=== PATIENT | male | born 2000 | race Caucasian/White ===

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

== ENCOUNTER 2018-02-16 07:44 | Emergency (ER) | payer MEDICAID ==
[~2018-02-16] VITALS: Ht 165.1 cm; Wt 69.5 kg
[2018-02-16 08:10] VITALS: BP 135/82
[2018-02-16] MEDS ORDERED: IBUPROFEN 600 MG TAB PO ONE (08:30)
== END 2018-02-16 08:52 | disposition home or self-care (01) ==
LOC: ER 07:44
DX: S43.014A Anterior dislocation of right humerus, initial encounter (principal); Z88.0 Allergy status to penicillin; Z79.899 Other long term (current) drug therapy; X58.XXXA Exposure to other specified factors, initial encounter; Y93.89 Activity, other specified; Y92.89 Other specified places as the place of occurrence of the external cause; Y99.8 Other external cause status
CPT/HCPCS: 23650; 73030

== ENCOUNTER 2018-03-06 11:46 | Emergency (ER) | payer MEDICAID ==
[2018-03-06 12:30] VITALS: BP 146/81
[2018-03-06] MEDS ORDERED: HYDROcodone-ACET 5/325MG TAB PO ONE (13:00)
== END 2018-03-06 13:22 | disposition home or self-care (01) ==
LOC: ER 11:46
DX: M24.411 Recurrent dislocation, right shoulder (principal); I48.91 Unspecified atrial fibrillation; Z79.899 Other long term (current) drug therapy; Z88.0 Allergy status to penicillin
CPT/HCPCS: 23650; 73020; 73030

== ENCOUNTER 2018-05-04 08:40 | Emergency (ER) | payer MEDICAID ==
[~2018-05-04] VITALS: Ht 167.6 cm; Wt 68.0 kg
[2018-05-04 08:55] VITALS: BP 138/76
== END 2018-05-04 10:03 | disposition home or self-care (01) ==
LOC: ER 08:40
DX: S20.212A Contusion of left front wall of thorax, initial encounter (principal); Z88.0 Allergy status to penicillin; W51.XXXA Accidental striking against or bumped into by another person, initial encounter; Y93.89 Activity, other specified; Y99.8 Other external cause status; Y92.89 Other specified places as the place of occurrence of the external cause
CPT/HCPCS: 71101

== ENCOUNTER 2018-05-27 12:44 | Emergency (ER) | payer MEDICAID ==
[~2018-05-27] VITALS: Ht 167.6 cm; Wt 68.6 kg
[2018-05-27] MEDS ORDERED: ETOMIDATE (2MG/ML) 20ML VIAL IV ONE (14:15)
[2018-05-27 16:17] VITALS: BP 130/70
== END 2018-05-27 15:37 | disposition home or self-care (01) ==
LOC: ER 12:46
DX: M24.411 Recurrent dislocation, right shoulder (principal); Z88.0 Allergy status to penicillin
CPT/HCPCS: 23650; 73020; 73030; 94761; 99152; 99153

== ENCOUNTER 2018-06-28 12:42 | Inpatient (IN) | payer MEDICAID ==
[~2018-06-28] VITALS: Ht 172.7 cm; Wt 70.1 kg
[2018-06-28 13:40] LABS: Basophils # (auto) 0 uL; Eosinophils # (auto) 0 uL; Mean Corpuscular Hemoglobin 27.9 pg (28.0-32.0); Mean Corpuscular Volume 83.8 fL (80.0-100.0); Monocytes # (auto) 0.6 uL; Nucleated Red Blood Cells % 0.1 %
[2018-06-28 13:44] LABS: Basophils % (auto) 0.4 % (0.0-2.0); Eosinophils % (auto) 0.2 % (0.0-7.0); Hematocrit 50.2 % (41.0-53.0); Hemoglobin 16.7 g/dL (13.5-17.5); Lymphocytes # (auto) 1.5 uL; Lymphocytes % (auto) 18.8 % (10.0-50.0); Mean Corpuscular Hgb Conc. 33.3 g/dL (32.0-36.0); Monocytes % (auto) 8.1 % (0.0-12.0); Neutrophils # (auto) 5.6 uL; Neutrophils % (auto) 72.5 % (37.0-80.0); Platelet Count (auto) 225 10^3/uL (140-450); Red Blood Cells 5.98 10^6/uL (4.5-5.90); Red Cell Distribution Width 13.6 % (11.8-14.3); White Blood Cell 7.8 10^3/uL (4.4-10.8)
[2018-06-28 14:07] LABS: Potassium 3.9 mmol/L (3.5-5.1)
[2018-06-28 14:12] LABS: Albumin 3.7 g/dL (3.4-5.0); BUN/Creatinine Ratio 10.1; Bilirubin, Total 0.4 mg/dL (0.2-1.0); Calcium 8.7 mg/dL (8.5-10.1)
[2018-06-28 15:46] LABS: Urine Bacteria NONE SEEN /hpf (None Seen); Urine Blood Negative /uL (Negative); Urine Mucus FEW (None Seen); Urine Specific Gravity 1.025 (1.001-1.035); Urine WBC 1 /hpf (0 - 3)
[2018-06-28 16:37] LABS: Alcohol, Urine < 3.0 mg/dL (0-5); Amphetamine Screen, Urine NEGATIVE (NEGATIVE); Barbiturate Scree,Urine NEGATIVE (NEGATIVE); Benzodiazephine Screen, Urine NEGATIVE (NEGATIVE); Cannabinoid Screen, Urine NEGATIVE (NEGATIVE); Cocaine Screen, Urine NEGATIVE (NEGATIVE); Opiate Scree,Urine NEGATIVE (NEGATIVE); Phencyclidine Screen, Urine NEGATIVE (NEGATIVE)
[2018-06-28] MEDS ORDERED: FLEET ENEMA(ADULT) 135 ML PR ONE (17:30)
[2018-06-28] MEDS ORDERED: TEMAZEPAM 15 MG CAP PO PRN (18:15)
[2018-06-28] MEDS ORDERED: NITROGLYCERIN 0.4 MG SL TAB SL PRN (18:15)
[2018-06-28] MEDS ORDERED: LACTULOSE 20Gm/30ML SOLN PO PRN (18:15)
[2018-06-28] MEDS ORDERED: ACETAMINOPHEN 500 MG TAB PO PRN (18:15)
[2018-06-28] MEDS ORDERED: LORazepam 2MG/ML-1ML VIAL IV PRN (18:15)
[2018-06-28] MEDS ORDERED: MORPHINE SULFATE 4 MG/ML SYR/VIAL IV PRN (18:15)
[2018-06-28] MEDS ORDERED: cefTRIAXone 1GM/50ML D5W 50 ML IV ONE (18:15)
[2018-06-28] MEDS ORDERED: ONDANSETRON HCL 4 MG/2 ML VIAL IV PRN (18:15)
[2018-06-28] MEDS ORDERED: traMADol HCL 50 MG TAB PO PRN (18:15)
[2018-06-28] MEDS ORDERED: LORazepam 0.5 MG TAB PO PRN (18:15)
[2018-06-28] MEDS ORDERED: DEXTROSE (50%) 50ML SYRG IV PRN (18:15)
[2018-06-28] MEDS: metroNIDAZOLE 500MG/100ML 100 ML IV SCH ×2 (18:41→23:56)
[2018-06-28] MEDS: SODIUM CHLORIDE 0.9% 1,000 ML IV SCH (18:41)
[2018-06-28] MEDS ORDERED: cefTRIAXone 1GM/50ML D5W 50 ML IV SCH (18:43)
[2018-06-28 18:58] LABS: Amylase 38 U/L (25-115); Lipase 105 U/L (73-393)
[2018-06-28 20:10] VITALS: BP 116/68
[2018-06-28] MEDS: FAMOTIDINE 20 MG TAB PO SCH (21:21)
[2018-06-28] MEDS: LEVETIRACETAM 500 MG TAB PO SCH (21:21)
[2018-06-28 22:00] VITALS: BP 116/68
[2018-06-28] MEDS ORDERED: OMEP20TA PO (23:43)
[2018-06-28] MEDS ORDERED: DIVA500T53 PO (23:44)
[2018-06-28] MEDS: ACCU-CHEK COMFORT CURVE STRIP VI SCH (23:56)
[2018-06-29] MEDS: SODIUM CHLORIDE 0.9% 1,000 ML IV SCH ×2 (04:03→12:45)
[2018-06-29 04:45] VITALS: BP 103/57
[2018-06-29] MEDS: metroNIDAZOLE 500MG/100ML 100 ML IV SCH ×3 (05:58→18:07)
[2018-06-29] MEDS: ACCU-CHEK COMFORT CURVE STRIP VI SCH ×3 (05:58→18:07)
[2018-06-29 08:00] VITALS: BP 120/73
[2018-06-29 09:00] VITALS: BP 120/73
[2018-06-29] MEDS ORDERED: cefTRIAXone 1GM/50ML D5W 50 ML IV SCH (09:00)
[2018-06-29] MEDS: FAMOTIDINE 20 MG TAB PO SCH (09:04)
[2018-06-29] MEDS: LEVETIRACETAM 500 MG TAB PO SCH (09:05)
[2018-06-29] MEDS ORDERED: ESLICARBAZEPINE ACETATE 800 MG PO SCH (10:00)
[2018-06-29] MEDS ORDERED: LACTULOSE 20Gm/30ML SOLN PO PRN (11:30)
[2018-06-29 13:00] VITALS: BP 121/73
[2018-06-29 17:00] VITALS: BP 114/59
[2018-06-29 20:00] VITALS: BP 121/65
== END 2018-06-29 20:20 | disposition home or self-care (01) | DRG 247 ==
LOC: ER 12:42 → EDBD 12:42 → TELE 12:43 → TELE-WESTW 19:47
PROVIDERS: ADMIT Internal Medicine; ATTEND Internal Medicine
DX: K56.41 Fecal impaction (principal); G40.409 Other generalized epilepsy and epileptic syndromes, not intractable, without status epilepticus; F32.9 Major depressive disorder, single episode, unspecified; F79 Unspecified intellectual disabilities; I10 Essential (primary) hypertension; K62.89 Other specified diseases of anus and rectum; R62.50 Unspecified lack of expected normal physiological development in childhood; Z82.0 Family history of epilepsy and other diseases of the nervous system; Z82.49 Family history of ischemic heart disease and other diseases of the circulatory system; Z88.0 Allergy status to penicillin
CPT/HCPCS: 36415; 71045; 74176; 80053; 80307; 81001; 82150; 82378; 82962; 83036; 83690; 83735; 85025; 87081; 94761; 96365; J0696; J2405; J3490

== ENCOUNTER 2018-09-10 16:49 | Emergency (ER) | payer MEDICAID ==
[~2018-09-10] VITALS: Ht 157.5 cm; Wt 66.7 kg
[~2018-09-10 16:49] MED LIST changes: +DIVA500T53 PO; -ESLI1TAB4 PO; +OMEP20TA PO
[2018-09-10] MEDS ORDERED: ETOMIDATE (2MG/ML) 20ML VIAL IV ONE (19:00)
[2018-09-10 19:30] VITALS: BP 140/72
[2018-09-10] MEDS ORDERED: ONDANSETRON HCL 4 MG/2 ML VIAL ONE (20:19)
[2018-09-10] MEDS ORDERED: ONDANSETRON HCL 4 MG/2 ML VIAL IV ONE (20:30)
== END 2018-09-10 23:53 | disposition home or self-care (01) ==
LOC: ER 16:53
DX: S43.014A Anterior dislocation of right humerus, initial encounter (principal); G40.909 Epilepsy, unspecified, not intractable, without status epilepticus; Z88.0 Allergy status to penicillin; Z79.899 Other long term (current) drug therapy; X58.XXXA Exposure to other specified factors, initial encounter; Y93.89 Activity, other specified; Y99.8 Other external cause status; Y92.89 Other specified places as the place of occurrence of the external cause
CPT/HCPCS: 23650; 73030; 94761; 96374; 99285; J2405

== ENCOUNTER 2018-12-23 22:15 | Emergency (ER) | payer MEDICAID, MEDICARE ==
[~2018-12-23] VITALS: Ht 160 cm; Wt 63.5 kg
[2018-12-23 22:26] VITALS: BP 130/74
[2018-12-24] MEDS ORDERED: PROPOFOL 100 ML IV ONE (01:12)
[2018-12-24] MEDS ORDERED: PROPOFOL 10 MG/ML 20 ML IV ONE (01:15)
[2018-12-24] MEDS ORDERED: cefTRIAXone 1GM/50ML D5W 50 ML IV ONE (04:45)
== END 2018-12-24 02:31 | disposition home or self-care (01) ==
LOC: ER 22:24
DX: M24.411 Recurrent dislocation, right shoulder (principal); Z88.0 Allergy status to penicillin; Z79.899 Other long term (current) drug therapy
CPT/HCPCS: 23650; 73020; 73030; 99285; J2704

== ENCOUNTER 2019-06-24 14:23 | Emergency (ER) | payer MEDICARE, MEDICAID ==
[~2019-06-24] VITALS: Ht 157.5 cm; Wt 61.2 kg
[2019-06-24] MEDS ORDERED: SODIUM CHLORIDE 0.9% 500 ML IV ONE (15:46)
[2019-06-24] MEDS ORDERED: ETOMIDATE (2MG/ML) 20ML VIAL IV ONE (16:00)
[2019-06-24 17:15] VITALS: BP 124/82
== END 2019-06-24 17:51 | disposition home or self-care (01) ==
LOC: ER 14:32
DX: S43.004A Unspecified dislocation of right shoulder joint, initial encounter (principal); M24.411 Recurrent dislocation, right shoulder; X58.XXXA Exposure to other specified factors, initial encounter; Y93.89 Activity, other specified; Y99.8 Other external cause status; Y92.89 Other specified places as the place of occurrence of the external cause; Z88.0 Allergy status to penicillin
CPT/HCPCS: 23650; 73020; 73030; 99152; 99285; J7030

== ENCOUNTER 2019-11-01 12:00 | Emergency (ER) | payer MEDICARE, MEDICAID ==
[~2019-11-01] VITALS: Ht 165.1 cm; Wt 59.4 kg
[2019-11-01 12:20] VITALS: BP 119/68
== END 2019-11-01 12:45 | disposition home or self-care (01) ==
LOC: ER 12:00
DX: S46.912A Strain of unspecified muscle, fascia and tendon at shoulder and upper arm level, left arm, initial encounter (principal); Z88.0 Allergy status to penicillin; Z79.899 Other long term (current) drug therapy; X50.9XXA Other and unspecified overexertion or strenuous movements or postures, initial encounter; Y93.89 Activity, other specified; Y92.092 Bedroom in other non-institutional residence as the place of occurrence of the external cause; Y99.8 Other external cause status
CPT/HCPCS: 73030

== ENCOUNTER 2020-05-22 10:43 | Emergency (ER) | payer MEDICARE, MEDICAID ==
[~2020-05-22] VITALS: Ht 170.2 cm; Wt 65.8 kg
[~2020-05-22 10:43] MED LIST changes: -LEVE500T22 PO; +LEVE500T32 PO
[2020-05-22 11:38] LABS: Basophils # (auto) 0 10 ^3/uL (0-0.2); Eosinophils # (auto) 0 10 ^3/uL (0-0.8); Eosinophils % (auto) 0.8 % (0.0-7.0); Monocytes # (auto) 0.5 10 ^3/uL (0-1.3); Monocytes % (auto) 10.4 % (0.0-12.0); White Blood Cell 4.9 10^3/uL (4.4-10.8)
[2020-05-22 11:41] LABS: Basophils % (auto) 0.4 % (0.0-2.0); Hematocrit 50.5 % (41.0-53.0); Hemoglobin 16.7 g/dL (13.5-17.5); Lymphocytes # (auto) 1.8 10 ^3/uL (0.4-5.4); Lymphocytes % (auto) 36.5 % (10.0-50.0); Mean Corpuscular Hemoglobin 27.7 pg (28.0-32.0); Neutrophils # (auto) 2.5 10 ^3/uL (1.6-8.6); Neutrophils % (auto) 51.9 % (37.0-80.0); Nucleated Red Blood Cells % 0.5 %; Platelet Count (auto) 174 10^3/uL (140-450); Red Blood Cells 6.02 10^6/uL (4.5-5.90); Red Cell Distribution Width 13.2 % (11.8-14.3)
[2020-05-22 12:06] LABS: Albumin 3.8 g/dL (3.4-5.0); BUN/Creatinine Ratio 16.3; Bilirubin, Total 0.9 mg/dL (0.2-1.0); Calcium 9.2 mg/dL (8.5-10.1); Total Protein 7.8 g/dL (6.4-8.2)
[2020-05-22 13:20] LABS: Urine WBC None Seen /hpf (0 - 3)
[2020-05-22 13:33] LABS: Urine Bacteria NONE SEEN /hpf (None Seen); Urine Blood Negative /uL (Negative)
[2020-05-22 15:08] VITALS: BP 113/72
== END 2020-05-22 15:23 | disposition home or self-care (01) ==
LOC: ER 10:43 → EDBD 10:43 → ER 15:23
DX: R56.9 Unspecified convulsions (principal)
CPT/HCPCS: 36415; 71045; 80053; 80164; 81001; 82962; 83735; 85025

== ENCOUNTER 2021-09-23 05:55 | Emergency (ER) | payer BC, MEDICAID ==
[~2021-09-23] VITALS: Ht 167.6 cm; Wt 59.0 kg
[~2021-09-23 05:55] MED LIST changes: +DIVA500T2 PO; -DIVA500T53 PO
[2021-09-23] MEDS ORDERED: MORPHINE SULFATE 4 MG/ML SYR/VIAL IV ONE (07:15)
[2021-09-23] MEDS ORDERED: ONDANSETRON HCL 4 MG/2 ML VIAL IV ONE (07:15)
[2021-09-23] MEDS ORDERED: LORazepam 2MG/ML-1ML VIAL IV ONE (07:30)
[2021-09-23] MEDS ORDERED: ETOMIDATE (2MG/ML) 20ML VIAL IV ONE (08:11)
[2021-09-23] MEDS: ETOMIDATE (2MG/ML) 20ML VIAL IV ONE ×2 (08:13→08:25)
[2021-09-23 08:25] VITALS: BP 117/72
== END 2021-09-23 08:23 | disposition home or self-care (01) ==
LOC: ER 05:55
DX: S43.004A Unspecified dislocation of right shoulder joint, initial encounter (principal); Z79.899 Other long term (current) drug therapy; Z88.0 Allergy status to penicillin; X50.1XXA Overexertion from prolonged static or awkward postures, initial encounter; Y93.89 Activity, other specified; Y92.89 Other specified places as the place of occurrence of the external cause; Y99.8 Other external cause status
CPT/HCPCS: 23650; 73020; 96374; 96375; 99152; 99285; J2060; J2270; J2405

== ENCOUNTER 2022-04-16 13:54 | Emergency (ER) | payer BC, MEDICAID ==
[~2022-04-16] VITALS: Ht 162.6 cm; Wt 74.7 kg
[2022-04-16 17:02] VITALS: BP 143/75
[2022-04-16] MEDS ORDERED: CLIN300C8 PO (17:11)
[2022-04-16] MEDS ORDERED: ACET-1158 PO (17:11)
== END 2022-04-16 17:24 | disposition home or self-care (01) ==
LOC: ER 13:54
DX: H66.91 Otitis media, unspecified, right ear (principal); Z79.2 Long term (current) use of antibiotics; Z79.899 Other long term (current) drug therapy; Z88.0 Allergy status to penicillin

== ENCOUNTER 2023-01-22 04:22 | Emergency (ER) | payer BC, MEDICAID ==
[~2023-01-22] VITALS: Ht 162.6 cm; Wt 67.2 kg
[~2023-01-22 04:22] MED LIST changes: +ACET-1158 PO; +CLIN300C8 PO
[2023-01-22] MEDS ORDERED: ETOMIDATE (2MG/ML) 20ML VIAL IV ONE (06:45)
[2023-01-22 07:39] VITALS: BP 138/77
== END 2023-01-22 07:58 | disposition home or self-care (01) ==
LOC: EDUNIT# 04:22 → ER 04:22
DX: M24.411 Recurrent dislocation, right shoulder (principal)
CPT/HCPCS: 23650; 73020; 73030; 99152

== ENCOUNTER 2023-03-23 11:41 | Emergency (ER) | payer BC, MEDICAID ==
[~2023-03-23] VITALS: Ht 198.1 cm; Wt 66.1 kg
[~2023-03-23 11:41] MED LIST changes: -ACET-1158 PO; +ACET500T58 PO; +CLIN300C70 PO; -CLIN300C8 PO; -DIVA500T2 PO; +DIVA500T3 PO; -LEVE500T32 PO; +LEVE500T40 PO
[2023-03-23] MEDS ORDERED: ETOMIDATE (2MG/ML) 20ML VIAL IV ONE (14:30)
[2023-03-23 15:29] VITALS: BP 118/77
[2023-03-23] MEDS ORDERED: ONDANSETRON HCL 4 MG/2 ML VIAL IV ONE (15:55)
[2023-03-23] MEDS ORDERED: ONDANSETRON HCL 4 MG/2 ML VIAL ONE (15:58)
== END 2023-03-23 17:05 | disposition home or self-care (01) ==
LOC: ER 11:41
DX: M24.411 Recurrent dislocation, right shoulder (principal); Z88.0 Allergy status to penicillin; X58.XXXA Exposure to other specified factors, initial encounter; Y93.89 Activity, other specified; Y92.89 Other specified places as the place of occurrence of the external cause; Y99.8 Other external cause status
CPT/HCPCS: 23650; 73030; 96374; 99285; J2405

== ENCOUNTER 2023-08-31 09:37 | Emergency (ER) | payer BC, MEDICAID ==
[~2023-08-31] VITALS: Ht 172.7 cm; Wt 61.2 kg
[2023-08-31 11:00] VITALS: TEMP 98.1
[2023-08-31 12:00] VITALS: BP 116/72; PULSE 82; RESP 18; O2SAT 98
== END 2023-08-31 12:12 | disposition home or self-care (01) ==
LOC: ER 09:37
DX: M24.411 Recurrent dislocation, right shoulder (principal); F32.9 Major depressive disorder, single episode, unspecified; Z88.8 Allergy status to other drugs, medicaments and biological substances; Z79.899 Other long term (current) drug therapy
CPT/HCPCS: 23650; 73020; 73030

== ENCOUNTER 2024-07-07 13:12 | Emergency (ER) | payer OTHER, MEDICAID ==
[~2024-07-07] VITALS: Ht 157.5 cm; Wt 63.2 kg
[~2024-07-07 13:12] MED LIST changes: +CLIN1CAP70 PO; -CLIN300C70 PO; +DIVA-91 PO; -DIVA500T3 PO
[2024-07-07] MEDS: ONDANSETRON HCL 4 MG/2 ML VIAL IV ONE (14:20)
[2024-07-07] MEDS: MORPHINE SULFATE 4 MG/ML SYR/VIAL IV ONE (14:22)
[2024-07-07 14:34] VITALS: TEMP 97.6
[2024-07-07] MEDS: SODIUM CHLORIDE 0.9% 1,000 ML IV ONE (14:39)
[2024-07-07] MEDS: PROPOFOL 10 MG/ML 20 ML IV ONE (14:39)
[2024-07-07 16:29] VITALS: PULSE 72; RESP 16; O2SAT 98
[2024-07-07 16:40] VITALS: BP 111/66; PULSE 71; RESP 20
== END 2024-07-07 16:42 | disposition home or self-care (01) ==
LOC: ER 13:12
DX: S43.004A Unspecified dislocation of right shoulder joint, initial encounter (principal); Z79.899 Other long term (current) drug therapy; Z88.0 Allergy status to penicillin; W23.0XXA Caught, crushed, jammed, or pinched between moving objects, initial encounter; Y93.89 Activity, other specified; Y92.89 Other specified places as the place of occurrence of the external cause; Y99.8 Other external cause status
CPT/HCPCS: 23650; 73030; 96361; 96374; 96375; 99152; 99285; J2270; J2405; J2704; J7030